=== PATIENT | female | born 1945 | race Hispanic/Latino ===

== ENCOUNTER → 2024-12-06 | Outpatient (CLI) | payer OTHER ==
--- NOTE | 2024-12-06 18:02 | HMCSR ---
APPROVED REPORT EXAM: Two-dimensional and M-mode echocardiogram with Doppler and color Doppler. INDICATION ICD: R60.9 Edema, unspecified 2D Dimensions RVDd3.4 cmLVEF(%)64.4 (>50%)LVED Vol(simp.)46.0 mL IVSd0.7 (0.7-1.1cm)FS(%)35 %LVES Vol(simp.)17.0 mL LVDd4.1 (3.8-5.6cm)LA (2D)3.7 (1.6-4.0cm)LVEF(%, simp.)63 % PWd1.0 (0.7-1.1cm)Ao Root(2D)2.9 (2.0-3.7cm) IVSs0.8 cmLVOT diam2.0 (1.8-2.4cm) LVDs2.7 (2.5-4.0cm) PWs1.3 cm M-Mode Dimensions EPSS0.2 cm LA (MM)3.7 (1.6-4.0cm) Ao Root(MM)2.5 (2.0-3.7cm) Aortic Valve AoV Vmax2.1 m/Leodan Peak GR18.3 mmHgLVOT Vmax1.1 m/s AoV VTI0.4 mAo Mean GR10.5 mmHgLVOT VTI0.23 m JIMMY (VMAX)1.70 cm2Al P1/2T530 msAVA (VTI) 1.7 cm2 Mitral Valve MV E Vmax63.7 cm/sDECEL Vfqi680 ms MV A Vmax83.6 cm/sP 1/2 T57 ms E/A ratio0.8MVA (PHT)3.9 cm2 TDI E/E' Atddno53.5E/E' Lateral8.5 Medial E' Peak V6.08 cm/sLateral E' Peak V7.52 cm/s Pulmonary Valve PV Vmax0.9 m/sPV VTI0.18 mPV Mean GR2.1 mmHg PV Peak GR3.3 mmHg Tricuspid Valve TR Vmax2.4 m/sRAP (EST) 3 [id number] mmHg TR Peak GR25.4 mmHg Left Ventricle The left ventricle is normal size. There is normal LV segmental wall motion. There is normal left hermilo tricular wall thickness. The LVEF is > 55%. The left ventricular diastolic function is normal. Right Ventricle The right ventricle is normal size. The right ventricular systolic function is normal. Atria The left atrium size is normal. The right atrium size is normal. Aortic Valve The aortic valve is normal in structure. Mild aortic regurgitation is present. There is no aortic tere vular stenosis. Mitral Valve There is mild mitral annular calcification. Mitral valve leaflets open well. There is no mitral valve regurgitation noted. There is no mitral valve stenosis. Tricuspid Valve The tricuspid valve is normal in structure. There is mild tricuspid valve regurgitation noted. Pulmonic Valve The pulmonary valve is normal in structure. There is no pulmonic valvular regurgitation. Great Vessels The aortic root is normal in size. The IVC is normal in size and collapses >50% with inspiration. Pericardium There is no pericardial effusion. Other Information Quality : Adequate Conclusion The LVEF is > 55%. There is normal LV segmental wall motion. There is mild mitral annular calcification. Mitral valve leaflets open well. The IVC is normal in size and collapses >50% with inspiration. There is no pericardial effusion.
--- NOTE | 2024-12-06 20:49 | HMCIMG ---
EXAMINATION: SPECTRAL DOPPLER ULTRASOUND EXAMINATION OF THE BILATERAL LOWER EXTREMITY VEINS. CLINICAL HISTORY: Edema. COMPARISON: None provided. TECHNIQUE: Real-time ultrasound scan of the veins of the bilateral lower extremity with color Doppler flow, spectral waveform analysis and compression. FINDINGS: DEEP VEINS: The common femoral, superficial femoral, and popliteal veins are echolucent and compressible. There is normal color Doppler flow throughout. The visualized calf veins appear patent. SUPERFICIAL VEINS: The greater saphenous veins are patent and compressible. SOFT TISSUES: No popliteal fossa cyst or other abnormalities. IMPRESSION: No deep venous thrombosis evident in the bilateral lower extremity. No superficial thrombophlebitis in the bilateral lower extremity. /[place]
== END | disposition home or self-care (01) ==
LOC: RAH 12:34
PROVIDERS: ATTEND Internal Medicine
DX: I08.3 Combined rheumatic disorders of mitral, aortic and tricuspid valves (principal); R60.0 Localized edema
CPT/HCPCS: 93306; 93970